=== PATIENT | female | born 1950 ===

== ENCOUNTER → 2023-07-13 | Outpatient (CLI) | payer MEDICARE, OTHER ==
[~2023-07-13] VITALS: Ht 160 cm; Wt 41.0 kg
[~2023-07-13] MED LIST: MULT-1203 PO
[2023-07-13 12:01] VITALS: BP 133/85; PULSE 66; RESP 18; TEMP 97.5; O2SAT 98
== END | disposition home or self-care (01) ==
LOC: SRCNTR 11:24
PROVIDERS: ATTEND Internal Medicine Pulmonary Disease
DX: J47.9 Bronchiectasis, uncomplicated (principal); I10 Essential (primary) hypertension; D64.9 Anemia, unspecified; K62.5 Hemorrhage of anus and rectum
CPT/HCPCS: G0463; Z7500